=== PATIENT | male | born 1990 | race Caucasian/White ===

== ENCOUNTER 2017-03-21 04:52 | Emergency (ER) | payer MEDICAID, OTHER ==
[~2017-03-21] VITALS: Ht 170.2 cm; Wt 99.3 kg
[2017-03-21 06:40] VITALS: BP 121/76
== END 2017-03-21 06:55 | disposition home or self-care (01) ==
LOC: ER 04:52
DX: S16.1XXA Strain of muscle, fascia and tendon at neck level, initial encounter (principal); F17.210 Nicotine dependence, cigarettes, uncomplicated; R42 Dizziness and giddiness; F15.10 Other stimulant abuse, uncomplicated; V43.52XA Car driver injured in collision with other type car in traffic accident, initial encounter; Y93.89 Activity, other specified; Y92.89 Other specified places as the place of occurrence of the external cause; Y99.8 Other external cause status
CPT/HCPCS: 70450; 71020; 72125

== ENCOUNTER 2018-10-24 02:36 | Emergency (ER) | payer OTHER ==
[~2018-10-24] VITALS: Ht 170.2 cm; Wt 99.8 kg
[2018-10-24] MEDS ORDERED: SODIUM CHLORIDE 0.9% 1,000 ML IV ONE (02:45)
[2018-10-24] MEDS ORDERED: DILTIAZEM HCL 25 MG/5 ML VIAL IV ONE ×2 (02:45→02:46)
[2018-10-24] MEDS ORDERED: LORazepam 2MG/ML-1ML VIAL ONE (02:53)
[2018-10-24] MEDS ORDERED: LORazepam 2MG/ML-1ML VIAL IV ONE (03:00)
[2018-10-24 03:54] LABS: Basophils # (auto) 0.1 uL; Basophils % (auto) 0.6 % (0.0-2.0); Eosinophils # (auto) 0.6 uL; Hemoglobin 13.4 g/dL (13.5-17.5); Lymphocytes # (auto) 3.2 uL; Neutrophils # (auto) 4.8 uL
[2018-10-24 03:55] LABS: Eosinophils % (auto) 6.3 % (0.0-7.0); Hematocrit 40.5 % (41.0-53.0); Lymphocytes % (auto) 32.9 % (10.0-50.0); Mean Corpuscular Hemoglobin 25.7 pg (28.0-32.0); Mean Corpuscular Hgb Conc. 33.2 g/dL (32.0-36.0); Mean Corpuscular Volume 77.4 fL (80.0-100.0); Monocytes % (auto) 10.3 % (0.0-12.0); Neutrophils % (auto) 49.9 % (37.0-80.0); Nucleated Red Blood Cells % 0.1 %; Platelet Count (auto) 231 10^3/uL (140-450); Red Blood Cells 5.23 10^6/uL (4.5-5.90); Red Cell Distribution Width 13.9 % (11.8-14.3); White Blood Cell 9.6 10^3/uL (4.4-10.8)
[2018-10-24 04:05] LABS: Albumin 2.7 g/dL (3.4-5.0); BUN/Creatinine Ratio 14.3
[2018-10-24 04:08] LABS: Potassium 2.9 mmol/L (3.5-5.1)
[2018-10-24 04:10] LABS: Bilirubin, Total 0.3 mg/dL (0.2-1.0); Total Protein 5.9 g/dL (6.4-8.2)
[2018-10-24] MEDS ORDERED: POTASSIUM CHL 20 Meq TABLET PO ONE ×3 (04:15→10:00)
[2018-10-24] MEDS ORDERED: POTASSIUM CHL 20MEQ/100ML 100 ML IV SCH ×3 (04:15→04:30)
[2018-10-24] MEDS: POTASSIUM CHL 20MEQ/100ML 100 ML IV SCH ×2 (04:45→06:15)
[2018-10-24] MEDS ORDERED: LORazepam 2MG/ML-1ML VIAL IV PRN (05:15)
[2018-10-24] MEDS ORDERED: ONDANSETRON HCL 4 MG/2 ML VIAL IV PRN (05:15)
[2018-10-24] MEDS ORDERED: ACETAMINOPHEN 500 MG TAB PO PRN (05:15)
[2018-10-24] MEDS ORDERED: HYDROcodone-ACET 5/325MG TAB PO PRN (05:15)
[2018-10-24] MEDS ORDERED: MORPHINE SULFATE 4 MG/ML SYR/VIAL IV PRN (05:45)
[2018-10-24] MEDS ORDERED: NITROGLYCERIN 0.4 MG SL TAB SL PRN (05:45)
[2018-10-24 07:24] LABS: Cholesterol 77 mg/dL (< 200); Triglycerides 88 mg/dL (< 150)
[2018-10-24 07:26] LABS: HDL Cholesterol 26 mg/dL (40-59); LDL Cholesterol 46 mg/dL (< 100)
[2018-10-24 08:50] VITALS: BP 107/68
[2018-10-24] MEDS ORDERED: ASPirin-EC 81 mg tab PO SCH (10:00)
[2018-10-24] MEDS ORDERED: METOPROLOL TARTRATE 25 MG TAB PO SCH (10:00)
[2018-10-24] MEDS ORDERED: ENOXAPARIN SOD 40 MG/0.4 ML SYRINGE SC SCH (10:00)
[2018-10-24] MEDS ORDERED: FAMOTIDINE 20 MG TAB PO SCH (10:00)
[2018-10-24] MEDS ORDERED: ATORVASTATIN 20 MG TAB PO SCH (22:00)
== END 2018-10-24 10:13 | disposition short-term general hospital (02) ==
LOC: EDBD 02:36 → ER 02:36
DX: I47.1 Supraventricular tachycardia (principal); E87.6 Hypokalemia; F15.10 Other stimulant abuse, uncomplicated; R79.89 Other specified abnormal findings of blood chemistry; F17.210 Nicotine dependence, cigarettes, uncomplicated; F12.10 Cannabis abuse, uncomplicated
CPT/HCPCS: 36415; 71045; 80053; 80061; 83880; 84484; 85025; 96374; 96375; 99285; J2060; J3480; J7030; 96361

== ENCOUNTER 2019-07-06 11:02 | Emergency (ER) | payer MEDICAID, OTHER ==
[~2019-07-06] VITALS: Ht 170.2 cm; Wt 107.0 kg
[2019-07-06 12:23] VITALS: BP 120/75
== END 2019-07-06 15:38 | disposition home or self-care (01) ==
LOC: ER 11:02
DX: M25.512 Pain in left shoulder (principal)